=== PATIENT | male | born 1995 | race Caucasian/White ===

== ENCOUNTER 2019-10-03 22:19 | Emergency (ER) | payer OTHER ==
[~2019-10-03] VITALS: Ht 182.9 cm; Wt 72.6 kg
[2019-10-04] MEDS ORDERED: ONDANSETRON ODT8 MG PO (00:14)
[2019-10-04 01:52] VITALS: BP 124/72
== END 2019-10-04 01:53 | disposition home or self-care (01) ==
LOC: ER 22:19
DX: J98.8 Other specified respiratory disorders (principal); R19.7 Diarrhea, unspecified; R11.2 Nausea with vomiting, unspecified; R51 Headache; R63.0 Anorexia; M79.10 Myalgia, unspecified site; F17.210 Nicotine dependence, cigarettes, uncomplicated

== ENCOUNTER → 2019-11-06 | Outpatient (CLI) | payer OTHER ==
[~2019-11-06] MED LIST: ONDANSETRON ODT8 MG PO
== END ==
LOC: RAD 12:04
DX: R05 Cough (principal); R06.09 Other forms of dyspnea